=== PATIENT | female | born 1955 | race African-American/Black ===

== ENCOUNTER → 2018-06-25 | Outpatient (CLI) | payer OTHER ==
--- NOTE | 2018-06-25 17:33 | KCIC ---
KNEE LEFT 2V, KNEE RIGHT 2V History: Osteoarthritis. Knee pain. 2 views standing right knee: No aggressive bone destruction or acute fracture. Joint spaces are intact. No significant soft tissue abnormality. 2. Views standing left knee: No evidence of acute fracture. No aggressive bone destruction. Joints and soft tissues appear intact. There is minimal vascular calcification. IMPRESSION: No significant radiographic abnormality. Electronically signed by: Brody Treadwell MD (06/25/2018 5:30 PM) [id number]
== END | disposition home or self-care (01) ==
LOC: KCIC 12:47
PROVIDERS: ATTEND Pediatrics
DX: M17.0 Bilateral primary osteoarthritis of knee (principal)
CPT/HCPCS: 73560